=== PATIENT | male | born 1965 | race Hispanic/Latino ===

== ENCOUNTER → 2019-06-13 | Emergency (ER) | payer OTHER ==
--- NOTE | 2019-06-13 13:36 | RAD ---
Exam: Chest one view HISTORY:Rash x3 weeks. Cough and congestion. Shortness of breath. Comparison: 06/21/2013 FINDINGS: Cardiac silhouette: Normal Aorta: Unremarkable Pulmonary vessels: Normal Costophrenic angles: Clear LUNGS: Diminished lung volumes. Linear density in the right lung base likely representing subsegmenta l atelectasis. Pneumothorax: None Osseous abnormalities: None Incidentals: Percutaneous lap band is noted. IMPRESSION: 1. Diminished lung volumes likely due to poor inspiratory effort. 3. Subsegmental atelectasis in the right lower lobe.
[2019-06-13 13:41] LABS: #Basophils 0.1 thou/uL (0.0-0.2); #Eosinphils 0.3 thou/uL (0.0-0.7); #Lymphocytes 1.4 thou/uL (1.20-3.40); #Monocytes 0.7 thou/uL (0.11-0.59); #Neutrophils 4.6 thou/uL (1.40-6.50); %Basophils 0.7 % (0.0-1.0); %Eosinophils 4.3 % (0.0-10.0); %Lymphocytes 20.1 % (21.0-51.0); %Monocytes 9.6 % (0.0-10.0); %Neutrophils 65.2 % (42.0-75.0); Hemoglobin 17.6 g/dL (14.0-18.0); Mean Corpuscular Hemoglobin 30.8 pg (27.0-31.0); Mean Corpuscular Volume 90.6 fL (78.0-98.0); Mean Platelet Volume 7.1 fL (7.4-10.4); Platelet Count 224 thou/uL (130-400); RBC Distribution Width 12.5 % (11.5-14.5); Red Blood Cell (RBC) Count 5.73 mill/uL (4.70-6.10)
[2019-06-13 14:04] LABS: ALT (SGPT) 159 U/L (8-55); AST (SGOT) 81 U/L (5-34); Albumin 4.5 g/dL (3.5-5.0); Alkaline Phosphatase 73 U/L (40-110); Anion Gap 12 mmol/L (10-20); BUN (Urea Nitrogen) 8 mg/dL (8.4-25.7); Bilirubin, Total 3.9 mg/dL (0.2-1.2); Calc. Creatinine Clearance 0 mL/min (70-130); Calcium 9.8 mg/dL (7.8-10.44); Carbon Dioxide 24 mmol/L (22-29); Chloride 103 mmol/L (98-107); Estimated GFR-MDRD 69; Globulin 3.4 g/dL (2.4-3.5); Glucose 140 mg/dL (70-105); Protein, Total 7.9 g/dL (6.0-8.3); Sodium 135 mmol/L (136-145)
== END ==
LOC: ERS 12:38
DX: Z53.21 Procedure and treatment not carried out due to patient leaving prior to being seen by health care provider (principal)
CPT/HCPCS: 36415; 71045; 80053; 85025

== ENCOUNTER 2023-10-12 18:06 | Emergency (ER) | payer OTHER ==
[2023-10-12 20:18] LABS: #Basophils 0.1 thou/uL (0.0-0.2); #Eosinphils 0.2 thou/uL (0.0-0.7); #Monocytes 0.6 thou/uL (0.11-0.59); #Neutrophils 4.4 thou/uL (1.40-6.50); %Basophils 0.7 % (0.0-1.0); %Eosinophils 3.5 % (0.0-10.0); %Lymphocytes 23.2 % (21.0-51.0); %Monocytes 8.2 % (0.0-10.0); %Neutrophils 63.8 % (42.0-75.0); Hematocrit 43.2 % (42.0-52.0); Hemoglobin 15.7 g/dL (14.0-18.0); Mean Corpuscular HGB CONC 36.3 g/dL (32.0-36.0); Mean Corpuscular Hemoglobin 31.9 pg (27.0-31.0); Mean Corpuscular Volume 87.8 fl (78.0-98.0); Mean Platelet Volume 10.2 fL (7.4-10.4); Platelet Count 226 10x3/uL (130-400); Red Blood Cell (RBC) Count 4.92 mill/uL (4.70-6.10); White Blood Cell (WBC) Count 6.9 10x3/uL (4.8-10.8)
[2023-10-12 20:43] LABS: Acetaminophen Less than 10 mcg/mL (10.0-30.0); Alcohol Less than 10.0 mg/dL (Less than 10); Salicylate Less than 8.0 mg/dL (15.0-30.0)
[2023-10-12 20:44] LABS: ALT (SGPT) 28 U/L (8-55); AST (SGOT) 15 U/L (5-34); Albumin 4.3 g/dL (3.5-5.0); Alkaline Phosphatase 138 U/L (40-110); Anion Gap 11 mmol/L (10-20); BUN (Urea Nitrogen) 10 mg/dL (8.4-25.7); Bilirubin, Total 2.1 mg/dL (0.2-1.2); Calc. Creatinine Clearance 0 mL/min (70-130); Calcium 9.6 mg/dL (7.8-10.44); Carbon Dioxide 25 mmol/L (22-29); Chloride 103 mmol/L (98-107); Estimated GFR 79; Globulin 3.3 g/dL (2.4-3.5); Glucose 238 mg/dL (70-105); Lipase 34 U/L (8-78); Potassium 4.2 mmol/L (3.5-5.1); Protein, Total 7.6 g/dL (6.0-8.3); Sodium 135 mmol/L (136-145)
[2023-10-12 20:52] LABS: SARS-CoV-2 NAA Rapid Test Not Detected (NotDetected)
[2023-10-12 22:45] LABS: Bacteria/HPF None Seen HPF (None Seen); Bilirubin Negative (Negative); Blood, Urine Negative (Negative); CAUTI Indications for Culture Fever or rigors; Clarity Clear (Clear); Glucose, Urine (Dipstick) >=1000 mg/dL (Negative); Ketone, Urine Negative (Negative); Leukocyte Negative Leu/uL (Negative); Nitrite Negative (Negative); Protein, Urine (Dipstick) Negative (Neg-Trace); RBC/HPF 0-3 HPF (0-3); Specific Gravity, Urine 1.026 (1.002-1.036); Squamous Epithelial None Seen HPF (0-3); WBC/HPF 0-3 HPF (0-3); pH, Urine 5.5 (5.0-9.0)
[2023-10-12 22:46] LABS: Urine Culture Reflex No No
[2023-10-12 22:53] LABS: Amphetamine Not Detected (NotDetected); Barbiturates Screen Not Detected (NotDetected); Benzodiazepine Screen Not Detected (NotDetected); Cocaine Metabolite Screen Not Detected (NotDetected); Methadone Not Detected (NotDetected); Methamphetamine Not Detected (NotDetected); Opiate Screen Not Detected (NotDetected); Oxycodone Screen Not Detected (NotDetected); Phencyclidine (PCP) Not Detected (NotDetected); THC/Cannabinoid Screen Not Detected (NotDetected); Tricyclic Screen Not Detected (NotDetected)
== END 2023-10-13 00:55 | disposition home or self-care (01) ==
LOC: ERS 18:06
DX: R10.9 Unspecified abdominal pain (principal); E11.9 Type 2 diabetes mellitus without complications; I10 Essential (primary) hypertension
CPT/HCPCS: 36415; 74176; 80053; 80306; 80307; 81001; 83605; 83690; 83880; 85025; 93005

== ENCOUNTER 2023-10-28 14:53 | Outpatient (CLI) | payer OTHER ==
[2023-10-28 15:51] LABS: #Basophils 0.1 10x3/uL (0.0-0.2); #Eosinphils 0.4 10x3/uL (0.0-0.5); #Monocytes 0.6 10x3/uL (0.0-1.1); #Neutrophils 4.9 10x3/uL (1.5-8.4); %Basophils 0.8 % (0.0-2.0); %Eosinophils 5.2 % (0.0-6.0); %Lymphocytes 21.3 % (18.0-47.0); %Monocytes 8.3 % (0.0-10.0); %Neutrophils 63.7 % (40.0-75.0); Hematocrit 42.4 % (38.8-50.0); Hemoglobin 15.3 g/dL (13.5-17.5); Mean Corpuscular HGB CONC 36.1 g/dL (32.0-36.0); Mean Corpuscular Hemoglobin 31.4 pg (27.0-33.0); Mean Corpuscular Volume 86.9 fl (81.2-95.1); Mean Platelet Volume 10.7 fl (7.4-10.4); Platelet Count 212 10x3/uL (150-450); RBC Distribution Width 12.9 % (11.5-14.5); Red Blood Cell (RBC) Count 4.88 10x6/uL (4.32-5.72); White Blood Cell (WBC) Count 7.6 10x3/uL (3.5-10.5)
[2023-10-28 16:21] LABS: ALT (SGPT) 24 U/L (8-55); AST (SGOT) 17 U/L (5-34); Albumin 4.3 g/dL (3.5-5.0); Alkaline Phosphatase 108 U/L (40-110); Anion Gap 13 mmol/L (10-20); BUN (Urea Nitrogen) 10 mg/dL (8.4-25.7); Bilirubin, Total 2.7 mg/dL (0.2-1.2); Calc. Creatinine Clearance 0 mL/min (70-130); Calcium 9.1 mg/dL (7.8-10.44); Carbon Dioxide 24 mmol/L (22-29); Chloride 104 mmol/L (98-107); Estimated GFR 85; Globulin 2.9 g/dL (2.4-3.5); Glucose 181 mg/dL (70-105); Potassium 3.9 mmol/L (3.5-5.1); Protein, Total 7.2 g/dL (6.0-8.3); Sodium 137 mmol/L (136-145)
== END 2023-10-28 14:54 | disposition home or self-care (01) ==
LOC: LABBT 14:53
PROVIDERS: ATTEND Surgery
DX: Z01.818 Encounter for other preprocedural examination (principal); K95.09 Other complications of gastric band procedure
CPT/HCPCS: 80053; 85025; 93005; 93010

== ENCOUNTER 2023-11-04 05:42 | Day surgery (SDC) | payer OTHER ==
[2023-10-28 15:48] VITALS: BMI 35.2
[2023-11-04] MEDS ORDERED: CEFAZOLIN 2 GM VIAL ONE (06:20)
[2023-11-04] MEDS ORDERED: Sodium Chloride 0.9% 100 ML ONE (06:20)
[2023-11-04] MEDS ORDERED: Bupivacaine PF 0.5% 30 ML VIAL ONE (06:53)
[2023-11-04] MEDS ORDERED: EPINEPHrine 1 MG/ML VIAL ONE (06:53)
[2023-11-04] MEDS ORDERED: Bupivacaine 0.25% HCL 30 ML VIAL ONE (06:54)
[2023-11-04] MEDS ORDERED: PROPOFOL 0 ML ONE (07:01)
[2023-11-04] MEDS ORDERED: fentaNYL PF 100 MCG/2 ML SYRINGE ONE (07:01)
[2023-11-04] MEDS ORDERED: Lidocaine 1% PF 5 ML VIAL ONE ×2 (07:01→08:19)
[2023-11-04] MEDS ORDERED: Rocuronium Bromide 10 MG/ML (10ML VIAL) ONE (07:01)
[2023-11-04] MEDS ORDERED: Midazolam HCl 2 mg/2 ml Vial ONE (07:18)
[2023-11-04] MEDS ORDERED: Famotidine/PF 20 mg/2ml Vial ONE (07:19)
[2023-11-04] MEDS ORDERED: Ketorolac Tromethamine 30 MG (1 mL) VIAL ONE (07:51)
[2023-11-04] MEDS ORDERED: Dexamethasone 4 mg/ml Vial ONE (07:51)
[2023-11-04] MEDS ORDERED: Ondansetron PF 4 MG/2 ML Vial ONE (07:51)
[2023-11-04] MEDS ORDERED: PROPOFOL 20 ML ONE (08:19)
[2023-11-04] MEDS ORDERED: Glycopyrrolate 0.2 MG/ML 5 ML SYRINGE ONE (08:34)
[2023-11-04] MEDS ORDERED: NEOSTIGMINE 3 MG/3 ML SYR 3 MG/3 ML SYRINGE ONE (08:34)
[2023-11-04] MEDS ORDERED: fentaNYL 50 mcg/mL 1 mL Vial ONE (08:51)
== END 2023-11-04 12:21 | disposition home or self-care (01) ==
LOC: SDC 05:42
PROVIDERS: ATTEND Surgery
PROC: 0DP64CZ Removal of Extraluminal Device from Stomach, Percutaneous Endoscopic Approach (ICD-10-PCS; principal; 2023-11-04)
DX: K95.09 Other complications of gastric band procedure (principal); Z98.84 Bariatric surgery status; E11.9 Type 2 diabetes mellitus without complications; Z79.84 Long term (current) use of oral hypoglycemic drugs; Z79.899 Other long term (current) drug therapy; Z91.041 Radiographic dye allergy status
CPT/HCPCS: J0171; J0665; J1100; J1885; J2250; J2405; J2704; J3010; J3490; S0028

== ENCOUNTER 2023-12-29 14:49 | Outpatient (CLI) | payer OTHER | END 2023-12-29 14:50 | disposition home or self-care (01) | LOC: DTY/OP 14:49 | PROVIDERS: ATTEND Surgery | DX: K59.09 Other constipation (principal) | CPT/HCPCS: 97802 ==

== ENCOUNTER 2024-01-11 16:04 | Emergency (ER) | payer OTHER | END 2024-01-11 17:12 | disposition left against medical advice (07) | LOC: ERS 16:04 | DX: Z53.21 Procedure and treatment not carried out due to patient leaving prior to being seen by health care provider (principal) ==

== ENCOUNTER 2024-02-10 15:08 | Outpatient (CLI) | payer OTHER | END 2024-02-10 15:09 | disposition home or self-care (01) | LOC: DTY/OP 15:08 | PROVIDERS: ATTEND Surgery | DX: K59.09 Other constipation (principal) | CPT/HCPCS: 97802 ==

== ENCOUNTER 2024-03-15 14:53 | Outpatient (CLI) | payer OTHER | END 2024-03-15 14:54 | disposition home or self-care (01) | LOC: DTY/OP 14:53 | PROVIDERS: ATTEND Surgery | DX: K59.09 Other constipation (principal) | CPT/HCPCS: 97802 ==

== ENCOUNTER 2024-05-30 15:40 | Outpatient (CLI) | payer OTHER | END 2024-05-30 15:41 | disposition home or self-care (01) | LOC: RAD 15:40 | PROVIDERS: ATTEND Internal Medicine | DX: Z01.818 Encounter for other preprocedural examination (principal) | CPT/HCPCS: 71046 ==

== ENCOUNTER 2024-09-05 16:00 | Inpatient (IN) | payer OTHER ==
[2024-09-07] MEDS ORDERED: Heparin 5,000 UNITS/ML VIAL ONE (08:24)
[2024-09-07] MEDS ORDERED: Ketorolac Tromethamine 30 MG (1 mL) VIAL ONE (08:24)
[2024-09-07] MEDS ORDERED: Acetaminophen 500 MG TAB ONE (08:24)
[2024-09-07] MEDS ORDERED: CEFAZOLIN 2 GM VIAL ONE (08:25)
[2024-09-07] MEDS ORDERED: Sodium Chloride 0.9% 100 ML ONE (08:25)
[2024-09-07] MEDS ORDERED: Bupivacaine 0.25% HCL 30 ML VIAL ONE (08:34)
[2024-09-07] MEDS ORDERED: EPINEPHrine 1 MG/ML VIAL ONE (08:34)
[2024-09-07] MEDS ORDERED: Rocuronium Bromide 10 MG/ML (10ML VIAL) ONE (09:28)
[2024-09-07] MEDS ORDERED: Lidocaine 1% PF 5 ML VIAL ONE (09:28)
[2024-09-07] MEDS ORDERED: Glycopyrrolate 0.2 MG/ML 5 ML SYRINGE ONE (09:28)
[2024-09-07] MEDS ORDERED: Ondansetron PF 4 MG/2 ML Vial ONE (09:28)
[2024-09-07] MEDS ORDERED: PHENYLEPHRINE-NS 100 MCG/ML 10 ML SYRINGE ONE (09:28)
[2024-09-07] MEDS ORDERED: Dexamethasone 20 MG/5 ML VIAL ONE (09:28)
[2024-09-07] MEDS ORDERED: fentaNYL PF 100 MCG/2 ML SYRINGE ONE (09:28)
[2024-09-07] MEDS ORDERED: PROPOFOL 20 ML ONE (09:32)
[2024-09-07] MEDS ORDERED: HYDROmorphone 2 MG/ML VIAL ONE (09:32)
[2024-09-07] MEDS ORDERED: Midazolam HCl 2 mg/2 ml Vial ONE (09:32)
[2024-09-07] MEDS ORDERED: Labetalol HCl 100 MG/20 ML VIAL ONE (10:38)
[2024-09-07] MEDS ORDERED: SUGAMMADEX SODIUM 200 MG/2 ML VIAL ONE (11:31)
[2024-09-07] MEDS ORDERED: Ondansetron PF 4 MG/2 ML Vial IVP PRN (12:06)
[2024-09-07] MEDS ORDERED: Dextrose 50% Abboject 50 ML SYRINGE SLOW IVP PRN (12:06)
[2024-09-07] MEDS ORDERED: Promethazine HCl 25 MG/ML VIAL IM PRN ×2 (12:06→12:30)
[2024-09-07] MEDS ORDERED: diphenhydrAMINE 50 MG/ML VIAL IVP PRN (12:06)
[2024-09-07] MEDS ORDERED: Ipratropium/Albuterol 3 ML NEB NEB PRN (12:06)
[2024-09-07] MEDS ORDERED: hydrALAZINE 20 MG/ML VIAL SLOW IVP PRN (12:06)
[2024-09-07] MEDS ORDERED: Glucagon 1 MG/ML KIT IM PRN (12:06)
[2024-09-07] MEDS ORDERED: Dextrose 5% in Water 1,000 ML IV PRN (12:06)
[2024-09-07] MEDS ORDERED: Naloxone HCl 0.4 mg/ml Vial IV PRN (12:30)
[2024-09-07] MEDS ORDERED: Fentanyl CADD 100 ML IVPB SCH (12:30)
[2024-09-07] MEDS ORDERED: diphenhydrAMINE 50 MG/ML VIAL IM/IV PRN (12:30)
[2024-09-07] MEDS ORDERED: diphenhydrAMINE 25 MG CAP PO PRN (12:30)
[2024-09-07] MEDS ORDERED: Promethazine HCl 25 MG/ML VIAL ONE (12:48)
[2024-09-07] MEDS ORDERED: D5 1/2 NS w/20 mEq KCL 1,000 ML ONE (13:04)
[2024-09-07] MEDS: D5 1/2 NS w/20 mEq KCL 1,000 ML IV SCH (13:05)
[2024-09-07] MEDS: CEFAZOLIN 2 GM in Sodium Chloride 0.9% 100 ML IVPB SCH (16:45)
[2024-09-07 17:42] VITALS: BMI 38.0
[2024-09-07] MEDS ORDERED: Ketorolac Tromethamine 30 MG (1 mL) VIAL IVP SCH (18:00)
[2024-09-07] MEDS: Ondansetron PF 4 MG/2 ML Vial IVP PRN (20:36)
[2024-09-08 05:26] LABS: #Basophils Less than 0.03 10x3/uL (0.0-0.2); #Eosinophils Less than 0.03 10x3/uL (0.0-0.7); %Basophils 0.2 % (0.0-1.0); %Lymphocytes 6.6 % (21.0-51.0); %Monocytes 8.9 % (0.0-10.0); %Neutrophils 83.8 % (42.0-75.0); Hematocrit 41.2 % (42.0-52.0); Hemoglobin 14.4 g/dL (14.0-18.0); Mean Corpuscular Hemoglobin 30.1 pg (27.0-31.0); Mean Platelet Volume 9.9 fL (7.4-10.4); Platelet Count 199 10x3/uL (130-400); RBC Distribution Width 13.2 % (11.5-14.5); Red Blood Cell (RBC) Count 4.79 mill/uL (4.70-6.10)
[2024-09-08 05:46] LABS: Anion Gap 13 mmol/L (10-20); BUN (Urea Nitrogen) 15 mg/dL (8.4-25.7); Calc. Creatinine Clearance 144 mL/min (70-130); Calcium 8.4 mg/dL (7.8-10.44); Carbon Dioxide 20 mmol/L (23-31); Chloride 107 mmol/L (98-107); Estimated GFR 100; Glucose 181 mg/dL (80-115); Potassium 4.3 mmol/L (3.5-5.1); Sodium 136 mmol/L (136-145)
[2024-09-08] MEDS: Enoxaparin 40 MG (0.4 mL) SYRINGE SC SCH (08:46)
[2024-09-08] MEDS: Pantoprazole 40 MG VIAL IVP SCH (08:47)
[2024-09-08] MEDS: Hydrocodone-Acetamin 15 ML UDCUP PO PRN (08:47)
[2024-09-08 11:37] VITALS: BP 118/73; TEMP 98.3
== END 2024-09-08 14:22 | disposition home or self-care (01) | DRG 621 ==
LOC: EDSTATUS 16:00 → SURG A 09-07 07:03
PROVIDERS: ADMIT Surgery; ATTEND Surgery
PROC: 0DB64Z3 Excision of Stomach, Percutaneous Endoscopic Approach, Vertical (ICD-10-PCS; principal; 2024-09-07)
DX: E66.01 Morbid (severe) obesity due to excess calories (principal); Z68.38 Body mass index [BMI] 38.0-38.9, adult; Z79.899 Other long term (current) drug therapy; E11.9 Type 2 diabetes mellitus without complications; Z98.890 Other specified postprocedural states; Z91.041 Radiographic dye allergy status
CPT/HCPCS: 36415; 36416; 80048; 85025; 88307; C1889; J0171; J0665; J1100; J1171; J1644; J1650; J1885; J2250; J2405; J2470; J2550; J2704; J3480; S2900

== ENCOUNTER 2025-04-21 12:45 | Outpatient (CLI) | payer OTHER ==
[2025-04-21 13:30] LABS: Estimated GFR - POC 76.0
[2025-04-21] MEDS ORDERED: Iopamidol 370 76% 100 ML VIAL ONE (15:36)
== END 2025-04-21 12:46 | disposition home or self-care (01) ==
LOC: CT 12:45
PROVIDERS: ATTEND Otolaryngology
DX: K11.8 Other diseases of salivary glands (principal)
CPT/HCPCS: 36415; 70491; 82565

== ENCOUNTER 2025-05-09 12:22 | Day surgery (SDC) | payer OTHER ==
[~2025-05-09 12:22] MED LIST: Ondansetron PF 4 MG/2 ML Vial IVP PRN
[2025-05-09] MEDS: Multivitamins, Adult 10 ML, Thiamine HCl 100 MG in Sodium Chloride 0.9% 1,000 ML IV SCH (13:00)
[2025-05-09 13:01] VITALS: BP 121/93; TEMP 98.3
== END 2025-05-09 15:10 | disposition home or self-care (01) ==
LOC: ONC/OP 12:22
PROVIDERS: ATTEND Surgery
DX: E86.0 Dehydration (principal)
CPT/HCPCS: 96365; 96366; J3411; J7030